=== PATIENT | female | born 1965 | race Caucasian/White ===

== ENCOUNTER 2022-04-23 09:42 | Day surgery (SDC) | payer MEDICARE, OTHER ==
[~2022-04-23] VITALS: Ht 165.1 cm; Wt 93.4 kg
[~2022-04-23 09:42] MED LIST: ALBUTEROL SUL0.083 % IN; ALPRAZOLAM0.25 MG PO; BUPROPN HCL300 MG PO; CVS ESOMEPRAZOL20 MG PO; ESTRA/NORETH1 TAB PO; FLUOXETINE HYDR20 MG PO; FLUOXETINE40 MG PO; HYDROCO/APAP1 TA9 PO; HYDROXYCHLOROQ200 MG PO; HYDROXYZINE HYD25 MG PO; LEVOXYL PO; LINZESS290 MCG PO; MELATONIN10 MG PO; PRAZOSIN HCL2 M1 PO; SIMVASTATIN20 M1 PO; SOAANZ20 MG PO; TELMISARTAN20 MG PO; TOPAMAX100 M1 PO; TRAMADOL HYDROC50 M1; TRAZODONE100 MG PO; ZOFRAN4 MG/TAB PO
[2022-04-23 11:51] VITALS: BP 114/57
== END 2022-04-23 12:03 | disposition home or self-care (01) ==
LOC: ORM 09:42
PROVIDERS: ATTEND Surgery
PROC: 0DJD8ZZ Inspection of Lower Intestinal Tract, Via Natural or Artificial Opening Endoscopic (ICD-10-PCS; principal; 2022-04-23)
PROC: 0DB98ZX Excision of Duodenum, Via Natural or Artificial Opening Endoscopic, Diagnostic (ICD-10-PCS; 2022-04-23)
PROC: 0DB78ZX Excision of Stomach, Pylorus, Via Natural or Artificial Opening Endoscopic, Diagnostic (ICD-10-PCS; 2022-04-23)
DX: Z12.11 Encounter for screening for malignant neoplasm of colon (principal); K64.8 Other hemorrhoids; K21.9 Gastro-esophageal reflux disease without esophagitis; K29.80 Duodenitis without bleeding; K31.9 Disease of stomach and duodenum, unspecified; K29.50 Unspecified chronic gastritis without bleeding; K31.7 Polyp of stomach and duodenum; K44.9 Diaphragmatic hernia without obstruction or gangrene; I10 Essential (primary) hypertension; I34.0 Nonrheumatic mitral (valve) insufficiency; Z80.0 Family history of malignant neoplasm of digestive organs; Z86.010 Personal history of colon polyps
CPT/HCPCS: 43239; G0105